=== PATIENT | female | born 1995 | race Asian ===

== ENCOUNTER → 2017-07-30 | Outpatient (CLI) | payer OTHER | END | disposition home or self-care (01) | LOC: C.LABSPEC 18:18 | PROVIDERS: ATTEND Neuromusculoskeletal Medicine & OMM | DX: Z02.89 Encounter for other administrative examinations (principal) ==

== ENCOUNTER → 2017-08-01 | Outpatient (CLI) | payer OTHER ==
[2017-08-06 18:10] LABS: VARICELLA ZOS VIR IGM AB <=0.90 (<=0.90)
== END | disposition home or self-care (01) ==
LOC: C.LABBC 09:54
PROVIDERS: ATTEND Neuromusculoskeletal Medicine & OMM
DX: Z02.89 Encounter for other administrative examinations (principal)

== ENCOUNTER → 2017-08-03 | Outpatient (CLI) | payer OTHER ==
--- NOTE | 2017-08-03 10:33 | DIAGNOSTIC IMAGING REPORT ---
CHEST 2 VIEWS ROUTINE CLINICAL HISTORY: 22 years-old Female presenting with R76.11 PPD [id number]. TECHNIQUE: PA and lateral views of the chest were obtained. COMPARISON: None. FINDINGS: Cardiomediastinal silhouette normal. Lungs and pleural spaces clear. Osseous structures normal. Upper abdomen normal. IMPRESSION: 1. No acute cardiopulmonary disease. Electronically signed by: Nolberto Benson M.D. 08/03/2017 10:32 AM Dictated Date/Time: 08/03/2017 10:31 AM
== END | disposition home or self-care (01) ==
LOC: C.RAD1850 10:08
PROVIDERS: ATTEND Neuromusculoskeletal Medicine & OMM
DX: R76.11 Nonspecific reaction to tuberculin skin test without active tuberculosis (principal)

== ENCOUNTER 2019-05-15 02:23 | Inpatient (IN) ==
[2019-05-15] MEDS ORDERED: OXYTOCIN 30 UNITS/500 ML BAG IV PRN ×3 (06:08→18:58)
--- NOTE | 2019-05-15 06:19 | History & Physical Report ---
Date of Service May 15, 2019 Assessment & Plan (1) Diet controlled gestational diabetes mellitus (GDM), antepartum: Will check sugar on admission and treat as needed. (2) Normal labor: admit. expectant management. epidural on demand. Anticipate . History of Present Illness Chief Complaint: contractions Primary Care Provider: NO PCP Patient is a 23yoasian female, with iup at 39 2/7 weeks who presents to labor and delivery with contractions. notes no lof, vb. +fm. com plicated by diet controlled GDM. last us was at 34 5/7 weeks with AC in 41 %. labs--AB+/ab-/pap nl/ri/rprnr/hiv-/hepb-/gc/ct-/ 16 week gtt elevated, with nl 2 hr/failed 28 week gtt/ gbs neg/ neg cf/sma/ declined genetics Allergies Allergy/AdvReac Type Severity Reaction Status Date / Time No Known Drug Allergies Allergy Verified 05/13/19 15:07 Home Medications Home Medications Medication Instructions Recorded Confirmed Type ferrous sulfate 325 mg PO DAILY 05/15/19 05/15/19 History vit [id number] 1 tab PO DAILY 05/15/19 05/15/19 History [ Vitamin] Patient History Medical History (Updated 05/15/19 @ 06:16 by Joyce Rajan MD, FACOG) H/O varicella History and physical examination, immigration (Resolved) Need for MMR vaccine (Resolved) PPD positive, treated Postive PPD 2017; given BCG vaccination in [place] Surgical History (Updated 01/03/19 @ 13:19 by Abimbola Benítez) No pertinent past surgical history Family History (Updated 01/03/19 @ 13:20 by Abimbola Benítez) Grandmother (Paternal) Diabetes Social History (Updated 01/03/19 @ 13:21 by Abimbola Benítez) Preferred Language: Kiswahili Communication Ability: Effective Research Manager Required: No Beliefs That Will Affect Care: None marital status: Current Living Situation: Spouse Current Living Situation Comment: Lives with current occupational status: unemployed Other Information That Helps Us Care for You: No Feels Safe at Home: Yes Safety Concerns: Feels Safe At This Time Smoking Status: Never smoker Do You Dip or Chew Tobacco: No ; Second Hand Exposure: No ; Tobacco Cessation Education Requested by Patient: No Hx Alcohol Use: No Hx Substance Use: No Physical Activity Frequency: 3-4 Times per Week 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 toco--q3-5min efm--145 with mod variability, accels to 150s, no decels Results & Data Vital Signs (Past 12 Hours) Vital Signs Temp Pulse Resp BP 05/15/19 03:19 37.1 C 96 H 18 111/76 05/15/19 02:58 37.1 C 18 05/15/19 02:57 96 H 111/76
[2019-05-15 06:48] LABS: Hematocrit (blood only) 34.3 % (37-47); Hemoglobin 11.9 g/dL (12.0-16.0); Mean Corpuscular Hemoglobin 32.2 pg (25-34); Mean Platelet Volume 10.8 fL (7.4-10.4); Platelet Count 138 K/uL (130-400); RDW Coefficient of Variation 13.2 % (11.5-14.5); RDW Standard Deviation 44.4 fL (36.4-46.3); Red Blood Count 3.69 M/uL (4.2-5.4); White Blood Count 8.86 K/uL (4.8-10.8)
[2019-05-15 06:56] LABS: Mean Corpuscular Hgb Conc 34.7 g/dL (32-36)
[2019-05-15] MEDS: LACTATED RINGER'S 1,000 ML IV PRN ×3 (07:32→15:26)
[2019-05-15] MEDS ORDERED: BUPIVACAINE 0.25% 30 ML VIAL ONE (11:27)
[2019-05-15] MEDS ORDERED: fentaNYL citrate 100 MCG/2 ML VIAL ONE (11:27)
[2019-05-15] MEDS ORDERED: ePHEDrine sulfate 50 MG/ML AMP ONE (11:27)
[2019-05-15] MEDS ORDERED: fentaNYL 2MCG/ML ROPIV 1.25MG/ML 100 ML BAG EPI ONE (11:28)
--- NOTE | 2019-05-15 11:28 | Anesthesiology Consultation ---
Date of Service May 15, 2019 Assessment & Plan Chart Review Chart Review: Acceptable Risk for Labor Epidural ASA ASA2 Proposed Anesthesia Anesthesia Type: General Risk / Benefits Reviewed With: PT / POA / Parent / Guardian, Accepts Plan and Informed Consent Obtained History Height/Weight Height: 5 ft 4 in Weight: 60.328 kg Allergies Allergy/AdvReac Type Severity Reaction Status Date / Time No Known Drug Allergies Allergy Verified 05/13/19 15:07 Medications Home Medications Medication Instructions Recorded Confirmed Last Taken ferrous sulfate 325 mg PO DAILY 05/15/19 05/15/19 05/14/19 08:00 vit [id number] 1 tab PO DAILY 05/15/19 05/15/19 05/14/19 08:00 [ Vitamin] Active Medications Generic Name Dose Route Start Last Admin Trade Name Freq PRN Reason Stop Dose Admin Lactated Ringer's 1,000 mls @ 125 mls/hr 05/15/19 06:08 05/15/19 10:59 Lr IV 05/17/19 06:07 999 mls/hr .Q8H PRN Administration L&D Protocol Protocol Past Medical History Medical History (Updated 05/15/19 @ 06:16 by Joyce Rajan MD, FACOG) H/O varicella History and physical examination, immigration (Resolved) Need for MMR vaccine (Resolved) PPD positive, treated Postive PPD 2017; given BCG vaccination in [place] Exercise / Class Metabolic Activity II 4-5 Yardwork/Stairs/Walk up hill Past Family History Family History (Updated 01/03/19 @ 13:20 by Abimbola Benítez) Grandmother (Paternal) Diabetes Past Surgical History Surgical History (Updated 01/03/19 @ 13:19 by Abimbola Benítez) No pertinent past surgical history Past Anesthesia History No Hx of Anesthesia Complications and No Family Hx of Anesthesia Complications History of PONV No Hx of PONV and No Hx of Motion Sickness Social History Smoking Status: Never smoker Do You Dip or Chew Tobacco: No Hx Alcohol Use: No Hx Substance Use: No substance use type: does not use Review of Systems denies fever/cough/ colds/ chest pain/ SOB/ MEE Constitutional: no fever and no chills Respiratory: no cough and no dyspnea denies MEE Cardiovascular: no chest pain and no dyspnea on exertion Physical Exam Vital Signs Last Vital Signs Temp 37.0 C 05/15/19 11:21 Pulse 73 05/15/19 11:23 Resp 18 05/15/19 11:21 BP 102/57 L 05/15/19 11:23 Pulse Ox 99 05/15/19 11:21 ENMT Mouth: no TMJ abnormality and no dentition abnormality Thyromental Distance: > or= 3.5 Finger Breadths Mallampati Class: II Neck neck extension not limited Respiratory normal respiratory effort; no respiratory distress Auscultation: lungs clear to auscultation bilaterally Cardiovascular Rate/Rhythm: regular rate and regular rhythm Neurologic moves all extremities Psychiatric Orientation: alert and oriented x 3 Testing Laboratory Results 05/15/19 06:34 05/15/19 06:40 POC Glucose 78
[2019-05-15] MEDS ORDERED: NALOXONE HCL 0.4 MG/1 ML VIAL/CARP IV PRN (11:36)
[2019-05-15] MEDS ORDERED: ONDANSETRON INJ 2 MG/ML 2 ML VIAL IV PRN (11:36)
[2019-05-15] MEDS ORDERED: DiphenhydrAMINE HCL 50 MG/ML VIAL IV PRN (11:36)
[2019-05-15] MEDS ORDERED: fentaNYL 2MCG/ML ROPIV 1.25MG/ML 100 ML BAG EPI PRN ×2 (11:36→14:10)
[2019-05-15] MEDS ORDERED: ATROPINE SULFATE 0.1 MG/ML 10ML SYR IV PRN (11:36)
[2019-05-15] MEDS ORDERED: NALOXONE HCL 1 MG in SODIUM CHLORIDE 0.9% 1000ML 1,000 ML IV PRN (11:36)
[2019-05-15] MEDS ORDERED: NALBUPHINE HCL INJ 10 MG/ML AMP IV PRN (11:36)
[2019-05-15] MEDS ORDERED: ePHEDrine sulfate 50 MG/ML AMP IV PRN ×2 (11:36)
[2019-05-15] MEDS ORDERED: DIPHTHERIA/TETANUS/PERTUSSIS 0.5 ML SYR/VIAL IM ONE (18:58)
[2019-05-15] MEDS ORDERED: ACETAMINOPHEN 325 MG TAB PO PRN (18:58)
[2019-05-15] MEDS ORDERED: bisacodyL 10 MG SUPP PR PRN (18:58)
[2019-05-15] MEDS ORDERED: BENZOCAINE 20% AER SPR 82.5 GM CAN EXT PRN (18:58)
[2019-05-15] MEDS ORDERED: SUPERCREAM 0.870% 15 GM JAR EXT PRN (18:58)
[2019-05-15] MEDS: IBUPROFEN 600 MG TAB PO PRN (19:09)
--- NOTE | 2019-05-15 19:29 | Anesthesia Procedure Note ---
Date of Service May 15, 2019 Anesthesia Post Epidural Note Vital Signs Vital Signs: Temp Pulse Resp BP Pulse Ox 37.4 C 85 18 110/58 L 86 L 05/15/19 17:44 05/15/19 19:21 05/15/19 18:55 05/15/19 19:21 05/15/19 18:27 Pain Intensity Abdomen: Pain Intensity: 0 Notes Mental Status: alert / awake / arousable and participated in evaluation Patient Amnestic to Procedure: Yes Nausea / Vomiting: adequately controlled Pain: adequately controlled Airway Patency, RR, SpO2: stable & adequate BP & HR: stable & adequate Hydration State: stable & adequate Anesthetic Complications: no major complications apparent and Pt Satisfied with anesthetic care
--- NOTE | 2019-05-15 19:59 | Delivery Summary ---
DATE OF OPERATION: 05/15/2019 The patient is a 23-year-old female G1, P0 who presented at 39 and 2/7 weeks in labor. She progressed to 5 cm dilated, membranes were ruptured for clear fluid. She then requested epidural analgesia, which was effective. She progressed to full dilation with the assistance of Pitocin augmentation. She pushed effectively over an intact perineum for delivery of a viable female . The rest of the delivered easily and was placed on the mother's abdomen for further attention. The cord was quite short and had to be cut and clamped prior to 30 seconds post-delivery. The infant was moving all 4 limbs and crying vigorously. After delivery of the head, the hand was presenting and this was delivered prior to delivering the rest of the . The placenta was then expressed intact with a 3-vessel cord. A second degree perineal laceration was repaired with 3-0 chromic in the usual fashion. Estimated blood loss was 300 mL. Post-delivery, bleeding was controlled with dilute Pitocin. Mother and were doing well after delivery. I attest to the content of the Intraoperative Record and any orders documented therein. Any exception s are noted below.
[2019-05-16] MEDS: IBUPROFEN 600 MG TAB PO PRN ×3 (00:30→16:24)
--- NOTE | 2019-05-16 06:02 | Obstetrical Progress Note ---
Date of Service <Sotero Mares MD - Last Filed: 05/16/19 07:43> May 16, 2019 Assessment & Plan <Sotero Mares MD - Last Filed: 05/16/19 07:43> (1) : PPD #1 doing well, ambulating well, continue to encourage independent voiding if patient needs to be cathed again then will need to leave catheter in and retry at a later time continue routine care until discharge after discharge will have follow-up in 6 weeks Subjective <Sotero Mares MD - Last Filed: 05/16/19 07:43> Ms. Alves is a 23 y/o female ; PPD #1 following spontaneous vaginal delivery at 39+ weeks; doing well this morning; having minimal abdominal cramping/pain; not able to void on her own, as she feels the urge to pee but is unable to go, has had to be cathed twice overnight; tolerating meals overnight; and able to ambulate some; some persistent spotting with intermittent improvement this morning. Review of Systems Constitutional: denies fever; chills; sweats; headache Respiratory: denies shortness of breath, difficulty breathing Cardiac: denies chest pain; palpitations; chest pressure Breast: denies breast pain : denies dysuria Physical Exam <Sotero Mares MD - Last Filed: 05/16/19 07:43> General: alert; oriented; no acute distress Cardiac: RRR; no m/g/r Respiratory: CTAB a/p; no wheezes/rales/rhonchi; no increased work of breathing; symmetrical chest rise; no respiratory distress Abdomen: soft; NT/ND; bowel sounds positive Uterus: uterine fundus firm; palpable 2cm below umbilicus Lower extrem: no lower extremity edema or swelling; no deep calf pain; Valerie's sign negative b/l Results & Data <Sotero Mares MD - Last Filed: 05/16/19 07:43> Vital Signs (Past 12 Hours) Vital Signs Temp Pulse Pulse Resp BP BP Pulse Ox 05/16/19 04:50 36.6 C 74 16 96/62 L 05/16/19 00:15 37.1 C 76 16 103/68 05/15/19 22:15 36.9 C 76 20 97/56 L 05/15/19 21:20 87 101/56 L 05/15/19 21:05 90 97/58 L 05/15/19 20:51 94 H 18 106/57 L 05/15/19 20:35 105 H 108/59 L 05/15/19 20:21 100 H 18 102/51 L 05/15/19 20:06 86 106/59 L 05/15/19 19:51 113 H 20 102/65 05/15/19 19:35 80 18 107/58 L 05/15/19 19:21 85 18 110/58 L 05/15/19 19:05 85 18 110/58 L 05/15/19 18:55 18 05/15/19 18:50 104 H 110/63 05/15/19 18:36 126 H 109/59 L 05/15/19 18:27 142 H 18 86 L 05/15/19 18:26 126 H 97 05/15/19 18:21 145 H 98 05/15/19 18:16 139 H 98 05/15/19 18:11 121 H 95 05/15/19 18:06 156 H 98 Laboratory Results 05/15/19 05/15/19 Range/Units 06:40 06:34 WBC 8.86 (4.8-10.8) K/uL RBC 3.69 L (4.2-5.4) M/uL Hgb 11.9 L (12.0-16.0) g/dL Hct 34.3 L (37-47) % MCV 93.0 (80-100) fL MCH 32.2 (25-34) pg MCHC 34.7 (32-36) g/dL RDW Std Deviation 44.4 (36.4-46.3) fL RDW Coeff of Rina 13.2 (11.5-14.5) % Plt Count 138 (130-400) K/uL MPV 10.8 H (7.4-10.4) fL POC Glucose 78 (70-99) Medications Administered Current Inpatient Medications Acetaminophen (Tylenol) 650 mg PO Q6H PRN PRN Reason: Pain/WILLIS/Fever Stop: 06/14/19 18:57 Benzocaine (Dermoplast Pain Relieving [place]) 1 appln EXT PRN PRN PRN Reason: Perineal Discomfort Stop: 06/14/19 18:57 Bisacodyl (Dulcolax) 5 mg PO 1999 [facility] Stop: 05/16/19 20:01 Bisacodyl (Dulcolax) 10 mg OK DAILY PRN PRN Reason: No BM on 2nd post- day Stop: 06/14/19 18:57 Cocaine HCl (Supercream 0.870%) 1 gm EXT BID PRN PRN Reason: Hemorrhoidal Inflammation Stop: 05/29/19 18:57 Diphenhydramine HCl (Benadryl) 25 mg IV Q6H PRN PRN Reason: Itching Stop: 05/16/19 11:35 Docusate Sodium (Colace) 100 mg PO DAILY@08, [facility] Stop: 06/14/19 20:59 Ephedrine Sulfate (Ephedrine Sulfate) 10 mg IV Q5M PRN PRN Reason: Hypotension Stop: 05/16/19 11:35 Hydrocortisone (Anusol Hc) 25 mg OK BID PRN PRN Reason: Hemorrhoidal Inflammation Stop: 06/14/19 18:57 Lactated Ringer's (Lr) 1,000 mls @ 125 mls/hr IV .Q8H PRN; Protocol PRN Reason: L&D Protocol Stop: 05/17/19 06:07 Last Infusion: 05/15/19 19:07 Dose: Infused Documented by: Oxytocin (Pitocin) 30 units in 500 mls @ 333.333 mls/hr IV .Q1H30M PRN; Protocol PRN Reason: Bleeding Control Stop: 06/14/19 06:07 Last Admin: 05/15/19 18:32 Dose: 59.94 units/hr, 999 mls/hr Documented by: Naloxone HCl 1 mg/ Sodium (Chloride) 1,002.5 mls @ 50 mls/hr IV .Q20H3M PRN PRN Reason: itching or nausea Stop: 05/16/19 11:35 Oxytocin (Pitocin) 30 units in 500 mls @ 7 mls/hr IV .Q24H PRN; Protocol PRN Reason: Labor Induction/Augmentation Stop: 05/17/19 11:57 Last Titration: 05/15/19 14:47 Dose: 0.42 units/hr, 7 mls/hr Documented by: Oxytocin (Pitocin) 30 units in 500 mls @ 333.333 mls/hr IV .Q1H30M PRN; Protocol PRN Reason: Bleeding Control Stop: 06/14/19 18:57 Ibuprofen (Motrin) 600 mg PO Q4H PRN PRN Reason: Pain/WILLIS/Cramping/Fever Stop: 06/14/19 18:57 Last Admin: 05/16/19 00:30 Dose: 600 mg Documented by: Nalbuphine HCl (Nubain) 5 mg IV Q10M PRN PRN Reason: itching or nausea Stop: 05/16/19 11:35 Naloxone HCl (Narcan) 0.1 mg IV UD PRN PRN Reason: Respiratory Depression Stop: 05/16/19 11:35 Ondansetron HCl (Zofran) 4 mg IV Q6H PRN PRN Reason: Nausea And Vomiting Stop: 05/16/19 11:35 Oxycodone/Acetaminophen (Percocet 5mg/325mg) 1 tab PO Q4H PRN PRN Reason: Pain not relieved by... Stop: 05/29/19 18:57 Prenat Multivit/[place]/Iron/Folic Ac ( Vitamin) 1 tab PO DAILY@08 PAUL Stop: 06/15/19 07:59 Ropivacaine (Epidural (L&D)) 100 ml EPI PRN PRN; Protocol PRN Reason: Pain R/T Labor Stop: 05/16/19 14:09 Last Admin: 05/15/19 16:43 Dose: 100 ml Documented by: <Francisca Sylvester MD, FACOG - Last Filed: 05/16/19 08:43> Co-Signing Physician Notes Resident Physician Supervision Note: I interviewed and examined the patient. Discussed with [Name of resident] and agree with findings and plan as documented in the note. Any exceptions or clarifications are listed here: [None] Documented By: Francisca Sylvester MD, FACOG Resident Activity Tracking <Sotero Mares MD - Last Filed: 05/16/19 07:43> Resident Involvement: Resident Care Provided Care Provided: OB Delivery
[2019-05-16 06:47] LABS: Hematocrit (blood only) 27.1 % (37-47); Hemoglobin 9.4 g/dL (12.0-16.0); Mean Corpuscular Hemoglobin 32.9 pg (25-34); Mean Corpuscular Hgb Conc 34.7 g/dL (32-36); Mean Corpuscular Volume 94.8 fL (80-100); Mean Platelet Volume 10.3 fL (7.4-10.4); Platelet Count 112 K/uL (130-400); RDW Coefficient of Variation 13.3 % (11.5-14.5); RDW Standard Deviation 45.7 fL (36.4-46.3); Red Blood Count 2.86 M/uL (4.2-5.4); White Blood Count 12.51 K/uL (4.8-10.8)
[2019-05-16] MEDS: PRENATAL VITAMIN 1 TAB PO SCH (09:00)
[2019-05-16] MEDS: FERROUS FUMARATE/ASCORBIC ACID 65 MG CAPCR PO SCH (09:01)
[2019-05-16] MEDS: DOCUSATE SODIUM 100 MG CAP PO SCH ×2 (09:01→20:19)
[2019-05-16] MEDS: HYDROCORTISONE ACETATE 25 MG SUPP PR PRN (18:42)
[2019-05-16] MEDS: OXYCODONE/ACETAMINOPHEN 5mg/325mg TAB PO PRN (18:42)
[2019-05-16] MEDS ORDERED: bisacodyL 5 MG TABEC PO SCH (20:00)
[2019-05-17] MEDS: IBUPROFEN 600 MG TAB PO PRN (04:52)
[2019-05-17] MEDS: OXYCODONE/ACETAMINOPHEN 5mg/325mg TAB PO PRN (04:53)
--- NOTE | 2019-05-17 06:28 | Obstetrical Progress Note ---
Date of Service May 17, 2019 day #2 the patient is doing well she is ambulating she has minimal pain her bleeding is controlled she has no extremity pain Assessment & Plan (1) Diet controlled gestational diabetes mellitus (GDM), antepartum: day #2 meets criteria for discharge instructions reviewed will send home Physical Exam Constitutional WD/WN, vitals as above Genitourinary Minimal bleeding no extremity tenderness Results & Data Vital Signs (Past 12 Hours) Vital Signs Temp Pulse Resp BP 05/17/19 00:50 99.0 F 79 18 103/59 L
[2019-05-17 07:18] LABS: Hematocrit (blood only) 26.3 % (37-47); Hemoglobin 9.2 g/dL (12.0-16.0)
[2019-05-17] MEDS: PRENATAL VITAMIN 1 TAB PO SCH (07:48)
[2019-05-17] MEDS: DOCUSATE SODIUM 100 MG CAP PO SCH (07:49)
[2019-05-17] MEDS: FERROUS FUMARATE/ASCORBIC ACID 65 MG CAPCR PO SCH (07:49)
[2019-05-17] MEDS: HYDROCORTISONE ACETATE 25 MG SUPP PR PRN (07:58)
[2019-05-17 09:52] VITALS: BP 101/63; PULSE 73; TEMP 97.7; O2SAT 98
== END 2019-05-17 15:30 | disposition home or self-care (01) | DRG 807 ==
LOC: OPB 02:23 → 4S1 02:26 → 4S2 22:07